=== PATIENT | female | born 1995 | race Caucasian/White ===

== ENCOUNTER 2020-10-20 09:23 | Day surgery (SDC) | payer BC ==
[2020-10-13 14:39] LABS: CLARITY,URINE CLEAR (Clear); COLOR,URINE YELLOW (Yellow); GLUCOSE, URINE NEGATIVE (Neg); KETONES,URINE NEGATIVE (Neg); LEUKOCYTE ESTERASE ,URINE NEGATIVE (Neg); NITRITES, URINE NEGATIVE (Neg); OCCULT BLOOD,URINE NEGATIVE (Neg); PH,URINE 6.5 (4.8-8.0); PROTEIN,URINE NEGATIVE (Neg); UROBILINOGEN,URINE 0.2 E.U/dL (0.2-1.0)
[2020-10-13 14:43] LABS: UA COLLECTION TYPE CLN CATCH MIDSTREAM
[2020-10-13 14:45] LABS: CHLORIDE 104 MMOL/L (99-107); POTASSIUM 4.2 MMOL/L (3.5-5.1); SODIUM 141 MMOL/L (135-145)
[2020-10-13 14:48] LABS: BASOPHILS # (AUTO) 0.1 X10'3 (0-0.2); BASOPHILS % (AUTO) 0.8 % (0-1); EOSINOPHILS # (AUTO) 0.1 X10'3 (0-0.9); EOSINOPHILS % (AUTO) 1.6 % (0-6); HCG SERUM QL NEGATIVE; LYMPHOCYTES # (AUTO) 2.3 X10'3 (1.1-4.8); LYMPHOCYTES % (AUTO) 29.6 % (21-51); MEAN CORPUSCULAR HEMOGLOBIN 29.9 PG (27.0-31.0); MEAN CORPUSCULAR HGB CONC 34.2 g/dL (33.0-36.5); MEAN CORPUSCULAR VOLUME 87.6 FL (78-98); MONOCYTES # (AUTO) 0.6 X10'3 (0-0.9); MONOCYTES % (AUTO) 7.9 % (2-12); NEUTROPHILS # (AUTO) 4.7 X10'3 (1.8-7.7); NEUTROPHILS % (AUTO) 60.1 % (42-75); PRE OP HEMATOCRIT 45.5 % (35.0-45.0); PRE OP HEMOGLOBIN 15.6 g/dL (12.0-16.0); PRE OP PLATELET COUNT 297 X10'3 (140-440); RED CELL DISTRIBUTION WIDTH 12.4 % (11.5-14.5)
[2020-10-13 14:58] LABS: ALANINE AMINOTRANSFERASE 23 U/L (12-78); ALBUMIN 4.2 G/DL (3.4-5.0); ALBUMIN/GLOBULIN RATIO 1.2 (1.1-1.5); ALKALINE PHOSPHATASE 57 IU/L (46-116); ANION GAP 7 (8-16); ASPARTATE AMINO TRANSFERASE 11 U/L (10-37); BILIRUBIN,TOTAL 1.3 MG/DL (0.1-1.0); BLOOD UREA NITROGEN 16 MG/DL (7-18); BUN/CREATININE RATIO 21.3 (6.6-38.0); CALCIUM 9.1 MG/DL (8.5-10.1); CREATININE 0.75 MG/DL (0.40-0.90); GLUCOSE 92 MG/DL (70-104); TOTAL CARBON DIOXIDE 29.9 MMOL/L (24-32); TOTAL PROTEIN 7.6 G/DL (6.4-8.2); eGFR > 90 ML/MIN
[2020-10-20] VITALS (8 sets, daily range): BP systolic 100–124; BP diastolic 68–99
[~2020-10-20] VITALS: Ht 154.9 cm; Wt 53.0 kg
[~2020-10-20 09:23] MED LIST: ACYC-202 PO; MULT-1085 PO; ceFAZolin 2gm in dextrose, iso 50 ML IV ONE; famotidine 20mg tablet PO ONE; ringers solution, lacted 1,000 ML IV SCH
[2020-10-20] MEDS ORDERED: ondansetron/PF 4mg/2ml inj IV PRN (12:15)
[2020-10-20] MEDS ORDERED: proCHLORperazine 10 MG/2 ml inj IV PRN (12:15)
[2020-10-20] MEDS ORDERED: morphine 4 MG/ML inj SYRINge IV PRN (12:15)
[2020-10-20] MEDS ORDERED: morphine 2 MG/ML inj. syringe IV PRN (12:15)
[2020-10-20] MEDS ORDERED: ringers solution, lacted 1,000 ML IV SCH (12:15)
[2020-10-20] MEDS ORDERED: meperidine/PF 25mg/ml syringe IV PRN ×3 (12:15)
[2020-10-20] MEDS ORDERED: fentaNYL/PF 50MCG/1 ML 2ML syringe ONE (12:47)
[2020-10-20] MEDS ORDERED: midazolam 2 mg/2 ml injection ONE (12:47)
[2020-10-20] MEDS ORDERED: rocuronium 10mg/ml inj IV ONE (12:49)
[2020-10-20] MEDS ORDERED: sevoflurane 250ml liquid IH ONE (12:49)
[2020-10-20] MEDS ORDERED: ROPIVAcaine 0.5% (5mg/ml) 30ml vial ONE (12:52)
[2020-10-20] MEDS ORDERED: propofol inj 20 ML IV ONE (13:43)
[2020-10-20] MEDS ORDERED: dexamethasone sod phosphate 4mg/ml inj. ONE (13:43)
[2020-10-20] MEDS ORDERED: bacitracin 15gm ointment TP ONE (13:44)
[2020-10-20] MEDS ORDERED: ondansetron/PF 4mg/2ml inj ONE (13:44)
[2020-10-20] MEDS ORDERED: neostigmine methylsulfate 1 MG/ML 10ml vial ONE (13:54)
[2020-10-20] MEDS ORDERED: glycopyrrolate 0.2mg/ml inj ONE (13:54)
--- NOTE | 2020-10-20 14:13 | NUR ---
Received from OR via [facility], accompanied by Anesthesiologist and report given by Anesthesiologist. PATIENT IS SLEEPING, ACEWRAP WITH SPLINT ON LEFT LEG TO ANKLE, ELEVATED WITH A PILLOW, PIV 20G ON LEFT FOREARM, LR RUNNING AT 100ML/HR. Ai MANN, WILL MONITOR. Addendum: 10/20/20 at 1436 by Gayla Cali RN Amended: Links added.
--- NOTE | 2020-10-20 15:35 | NUR ---
PATIENT VERBALIZED UNDERSTANDING, OPPORTUNITY TO ASK QUESTIONS GIVEN AND PATIENT COMFORTABLE WITH DC. PATIENT IS STILL NAUSEATED AFTER MEDICATIONS ADMINISTRATIONS, ORAL INTAKE OF SODA AND SALTINE CRACKERS, AND SITTING UP ON WHEELCHAIR, EMESIS BAG GIVEN TO PATIENT FOR TRANSFER HOME AND PATIENT'S FAMILY NOTIFIED, PIV 20G TAKEN OUT FROM LEFT FOREARM INTACT WITHOUT COMPLICATION. PATIENT HAS MET ALL DC CRITERIA FOR DC HOME. I HAVE REVIEWED D/C INSTRUCTIONS WITH PATIENT. TAKEN OUT VIA WHEELCHAIR WHERE PATIENT WAS TAKEN HOME WITH ALL BELONGINGS. FAMILY GAVE PATIENT TRANSPORT HOME.
== END 2020-10-20 15:28 | disposition home or self-care (01) ==
LOC: PAS 09:23
PROVIDERS: ATTEND Podiatrist Foot & Ankle Surgery
DX: S86.012A Strain of left Achilles tendon, initial encounter (principal); M25.572 Pain in left ankle and joints of left foot; M76.62 Achilles tendinitis, left leg; Z79.899 Other long term (current) drug therapy; Z20.822 Contact with and (suspected) exposure to COVID-19; Z98.890 Other specified postprocedural states; G89.18 Other acute postprocedural pain; X58.XXXA Exposure to other specified factors, initial encounter; Y93.89 Activity, other specified; Y92.89 Other specified places as the place of occurrence of the external cause; Y99.8 Other external cause status
CPT/HCPCS: 27650; 36415; 64445; 76942; 80053; 81003; 82948; 84703; 85025; 87426; 87635; A6223; J0780; J1100; J2250; J2405; J2704; J2710; J3010; A4215; A4618; A6253; A6449; A7000; J2795; J3490; J7120